=== PATIENT | male | born 1975 | race Caucasian/White ===

== ENCOUNTER 2016-11-05 18:01 | Emergency (ER) | payer MEDICAID ==
[2016-11-05 18:20] VITALS: BP 140/80; PULSE 80; O2SAT 100
--- NOTE | 2016-11-05 18:20 | ERPHSYRPT ---
- History of Present Illness Time Seen by Provider: 11/05/16 18:15 Source: patient Exam Limitations: no limitations Physician History: The patient is a 40-year-old male with his complaining of an itchy linear rash on both forearms for 2 days. A few days before that he was helping his uncle trim brushed from a fence row. He's had a past allergy to poison lety. He tried calamine lotion without relief. His past medical history is significant for DVT, GERD, and poison lety. Timing/Duration: day(s) (2) Quality: itchy Severity: mild Location: extremities Possible Causes: poison lety Modifying Factors: Improves With: calamine lotion Associated Symptoms: rash Allergies/Adverse Reactions: risperidone Allergy (Mild, Verified 06/28/14 15:17) Hives Home Medications: Carbamazepine 200 mg [Tegretol 200 MG] 400 mg PO BID 06/28/14 [History] Omeprazole [Prilosec] 20 mg PO DAILY 09/02/14 [History] Ranitidine HCl [Zantac] 1 tab PO QHS 09/02/14 [History] Warfarin Sodium 5 mg [Coumadin 5 MG] 5 mg PO DAILY 09/02/14 [History] Hx Tetanus, Diphtheria Vaccination/Date Given: No Hx Influenza Vaccination/Date Given: No Hx Pneumococcal Vaccination/Date Given: No - Review of Systems Constitutional: No Fever, No Chills Eyes: No Symptoms Ears, Nose, & Throat: No Symptoms Respiratory: No Cough, No Dyspnea Cardiac: No Chest Pain, No Edema, No Syncope Abdominal/Gastrointestinal: No Abdominal Pain, No Nausea, No Vomiting, No Diarrhea Genitourinary Symptoms: No Dysuria Musculoskeletal: No Back Pain, No Neck Pain Skin: Rash Neurological: No Dizziness, No Focal Weakness, No Sensory Changes Psychological: No Symptoms Endocrine: No Symptoms Hematologic/Lymphatic: No Symptoms Immunological/Allergic: No Symptoms All Other Systems: Reviewed and Negative - Past Medical History Pertinent Past Medical History: Yes Neurological History: Seizures ENT History: No Pertinent History Cardiac History: Other (DVT lower extremities on Coumadin) Respiratory History: No Pertinent History Endocrine Medical History: No Pertinent History Musculoskeletal History: No Pertinent History GI Medical History: GERD History: No Pertinent History Psycho-Social History: No Pertinent History Male Reproductive Disorders: No Pertinent History - Past Surgical History Past Surgical History: No Neuro Surgical History: No Pertinent History Cardiac: No Pertinent History Respiratory: No Pertinent History Gastrointestinal: No Pertinent History Genitourinary: No Pertinent History Musculoskeletal: No Pertinent History Male Surgical History: No Pertinent History Other Surgical History: ingrown toe nail - Social History Smoking Status: Never smoker Exposure to second hand smoke: No Drug Use: none Patient Lives Alone: No - Physical Exam General Appearance: no apparent distress, alert Eye Exam: PERRL/EOMI, eyes nml inspection Ears, Nose, Throat Exam: normal ENT inspection, pharynx normal, moist mucous membranes Neck Exam: normal inspection, non-tender, supple, full range of motion Respiratory Exam: normal breath sounds, lungs clear, No respiratory distress Cardiovascular Exam: regular rate/rhythm, normal heart sounds Gastrointestinal/Abdomen Exam: soft, mass, No tenderness Rectal Exam: not done Back Exam: normal inspection, normal range of motion, No CVA tenderness, No vertebral tenderness Extremity Exam: normal inspection, normal range of motion Neurologic Exam: alert, oriented x 3, cooperative, normal mood/affect, sensation nml, No motor deficits Skin Exam: rash (Evaluation of bilateral forearms reveals linear red rash on each forearm consistent with contact dermatitis poison lety.) SpO2 Interpretation: normal - Departure Time of Disposition: 18:22 Departure Disposition: Home Clinical Impression: Contact dermatitis due to poison lety Condition: Stable Critical Care Time: No Additional Instructions: You have a rash on her forearms caused by poison lety. You have been given a prescription for a steroid to apply to the area twice a day for 5-7 days. Prescriptions: Triamcinolone 0.1% Cream [Kenalog 0.1% Cream 15 gm] 15 gm TP BID #1 cream
== END 2016-11-05 18:34 | disposition home or self-care (01) ==
LOC: ED 18:01
DX: L23.7 Allergic contact dermatitis due to plants, except food (principal)
CPT/HCPCS: 99283